=== PATIENT | female | born 1980 | race Caucasian/White ===

== ENCOUNTER 2018-03-27 22:44 | Emergency (ER) | payer OTHER ==
[~2018-03-27] VITALS: Ht 160 cm; Wt 71.2 kg
[~2018-03-27 22:44] MED LIST: GABA300C PO
[2018-03-27 23:05] VITALS: BP 113/86
--- NOTE | 2018-03-27 23:11 | NUR ---
Pt ambulated to bed 11 with vss.
--- NOTE | 2018-03-27 23:15 | NUR ---
PATIENT PRESENTS TO ED WITH RLQ PAIN X1 DAY. PATIENT STATES SHE WAS FEELING FAINT EARLIER IN THE DAY BUT DENIES ANY LOSS OF CONSCIOUSSNESS OR FALLS. PATIENT DENIES ANY PAIN WITH URINATION, OR ABDOMINAL PAIN. PATIENT STATES 0/10 PAIN AT THIS TIME. ER MD MADE AWARE OF PATIENT STATUS. WILL CONTINUE TO MONITOR.
[2018-03-28 00:32] VITALS: BP 115/89
--- NOTE | 2018-03-28 00:33 | NUR ---
Patient discharged with v/s stable. Written and verbal after care instructions given and explained. Patient alert, oriented and verbalized understanding of instructions. Ambulatory with steady gait. All questions addressed prior to discharge. ID band removed. Patient advised to follow up with PMD. Rx of CIPRO 500MG, MOTRIN 800 MG given. Patient educated on indication of medication including possible reaction and side effects. Opportunity to ask questions provided and answered.
== END 2018-03-28 00:33 | disposition home or self-care (01) ==
LOC: MED 22:44
DX: N39.0 Urinary tract infection, site not specified (principal)
CPT/HCPCS: 81002; 81025; 99283